=== PATIENT | female | born 2000 | race Caucasian/White ===

== ENCOUNTER 2019-05-17 13:59 | Emergency (ER) | payer OTHER ==
[~2019-05-17] VITALS: Ht 162.6 cm; Wt 63.5 kg
[~2019-05-17 13:59] MED LIST: INTESTINEX680 MG PO; ZANTAC150 MG PO
[2019-05-17] MEDS ORDERED: SYNTHROID150 MCG (14:09)
== END 2019-05-17 16:42 | disposition home or self-care (01) ==
LOC: ER 13:59
DX: R42 Dizziness and giddiness (principal)